=== PATIENT | male | born 1975 | race Caucasian/White ===

== ENCOUNTER 2016-08-22 14:17 | Emergency (ER) | payer SELFPAY ==
[~2016-08-22] VITALS: Ht 175.3 cm; Wt 85.0 kg
[2016-08-22] MEDS ORDERED: BACITRACIN ZINC OINT UDPKT TOP ONE (14:45)
[2016-08-22] MEDS ORDERED: TETANUS, DIPHTHERIA, PERTUSSIS VAC/PF 0.5ML (>7YR OLD) IM ONE (14:45)
[2016-08-22] MEDS ORDERED: LIDOCAINE HCL 1%/EPI 1:200,000 30 ML VIAL MC ONE (14:45)
[2016-08-22] MEDS ORDERED: HYDROCODONE/ACETAMINOPHEN 5/325MG TABLET PO ONE (14:45)
[2016-08-22 17:05] VITALS: BP 116/81
== END 2016-08-22 17:14 | disposition home or self-care (01) ==
LOC: ER 14:37
DX: S61.412A Laceration without foreign body of left hand, initial encounter (principal); W27.0XXA Contact with workbench tool, initial encounter; Y93.89 Activity, other specified; Y92.89 Other specified places as the place of occurrence of the external cause; Y99.8 Other external cause status
CPT/HCPCS: 12002; 90471; 90715; 99283; X7700; Z7610; 96372